=== PATIENT | male | born 1945 | race Caucasian/White ===

== ENCOUNTER 2021-01-13 05:04 | Day surgery (SDC) | payer OTHER, MEDICARE ==
[2021-01-09 17:26] VITALS: BMI 50.7
[2021-01-13 09:32] VITALS: TEMP 96.9
[2021-01-13 10:26] VITALS: BP 128/60; PULSE 77
== END 2021-01-13 10:27 | disposition home or self-care (01) ==
LOC: JASU-ENDO 05:04
PROVIDERS: ATTEND Internal Medicine Gastroenterology
PROC: 0DB98ZX Excision of Duodenum, Via Natural or Artificial Opening Endoscopic, Diagnostic (ICD-10-PCS; 2021-01-13)
PROC: 0DB68ZX Excision of Stomach, Via Natural or Artificial Opening Endoscopic, Diagnostic (ICD-10-PCS; 2021-01-13)
PROC: 0DBN8ZX Excision of Sigmoid Colon, Via Natural or Artificial Opening Endoscopic, Diagnostic (ICD-10-PCS; principal; 2021-01-13 10:00)
DX: Z12.11 Encounter for screening for malignant neoplasm of colon (principal); Z86.010 Personal history of colon polyps; D12.5 Benign neoplasm of sigmoid colon; K64.8 Other hemorrhoids; K29.50 Unspecified chronic gastritis without bleeding

== ENCOUNTER 2022-04-24 12:13 | Inpatient (IN) | payer OTHER, MEDICARE ==
[2022-04-24 12:36] VITALS: BMI 24.0
[2022-04-24 14:14] LABS: BASO % 0.7 % (0-2.0); EOS % 2.4 % (0-4.5); HEMATOCRIT 36.2 % (35.4-49); HEMOGLOBIN 12.5 GM/dL (11.7-16.9); LYMPH % 32.9 % (8-40); MCH 32.4 pg (25.7-33.7); MCHC 34.4 g/dl (32.0-35.9); MEAN CELL VOLUME 94.1 fl (80-96); MEAN PLT VOLUME 7.8 fl (7.5-11.1); MONO % 8.1 % (3.8-10.2); NEUT % 55.9 % (42.8-82.8); PLATELET COUNT 294 10^3/uL (134-434); RBC 3.85 M/mm3 (4.00-5.60); RDW 13.6 % (11.9-15.9); WHITE BLOOD COUNT 6.3 K/mm3 (4.0-10.0)
[2022-04-24 14:38] LABS: CALCIUM 9.2 mg/dL (8.5-10.1)
[2022-04-24 14:39] LABS: ALBUMIN 3.9 g/dl (3.4-5.0); BLOOD UREA NITROGEN 26.4 mg/dL (7-18)
[2022-04-24 14:42] LABS: CREATININE 1.1 mg/dL (0.55-1.3)
[2022-04-24 14:43] LABS: TOT PROT 7.5 g/dl (6.4-8.2)
[2022-04-24 14:44] LABS: BILIRUBIN,TOTAL 0.6 mg/dL (0.2-1)
[2022-04-24 14:47] LABS: N-TERMINAL BNP 265.7 pg/ml (5-450)
[2022-04-24] MEDS ORDERED: HEPARIN NA (PORCINE) 5,000 UNITS/ML 1ML VIAL ONE (21:50)
[2022-04-24] MEDS ORDERED: AMIODARONE HCL 200 MG TABLET ONE (21:50)
[2022-04-24] MEDS: AMIODARONE HCL 200 MG TABLET PO SCH (21:56)
[2022-04-24] MEDS: HEPARIN NA (PORCINE) 5,000 UNITS/ML 1ML VIAL SQ SCH (21:56)
[2022-04-25] MEDS: AMIODARONE HCL 200 MG TABLET PO SCH ×2 (09:59→22:19)
[2022-04-25] MEDS: RAMIPRIL 2.5 MG CAPSULE PO SCH ×2 (09:59→10:23)
[2022-04-25] MEDS: amLODIPine BESYLATE 5 MG TABLET (FP) PO SCH (09:59)
[2022-04-25] MEDS: HYDROCHLOROTHIAZIDE 25 MG TABLET (FP) PO SCH (09:59)
[2022-04-25] MEDS: HEPARIN NA (PORCINE) 5,000 UNITS/ML 1ML VIAL SQ SCH ×2 (09:59→22:20)
[2022-04-25] MEDS: ASPIRIN 81 MG CHEWABLE TABLETS PO SCH ×2 (09:59→10:20)
[2022-04-25] MEDS ORDERED: TAMSULOSIN HCL 0.4 MG CAP PO SCH (10:00)
[2022-04-25] MEDS ORDERED: ROSUVASTATIN CA 40 MG TABLET PO SCH (10:00)
[2022-04-26] MEDS ORDERED: ROSUVASTATIN CA 20 MG TABLET PO SCH (05:38)
[2022-04-26] MEDS: HYDROCHLOROTHIAZIDE 25 MG TABLET (FP) PO SCH (10:16)
[2022-04-26] MEDS: RAMIPRIL 2.5 MG CAPSULE PO SCH ×2 (10:16→10:28)
[2022-04-26] MEDS: ASPIRIN 81 MG CHEWABLE TABLETS PO SCH ×2 (10:16→10:28)
[2022-04-26] MEDS: AMIODARONE HCL 200 MG TABLET PO SCH ×2 (10:16→22:19)
[2022-04-26] MEDS: TAMSULOSIN HCL 0.4 MG CAP PO SCH ×2 (10:16→10:28)
[2022-04-26] MEDS: HEPARIN NA (PORCINE) 5,000 UNITS/ML 1ML VIAL SQ SCH ×2 (10:16→22:21)
[2022-04-26] MEDS: amLODIPine BESYLATE 5 MG TABLET (FP) PO SCH (10:16)
[2022-04-27 09:23] LABS: BASO % 0.9 % (0-2.0); EOS % 1.8 % (0-4.5); HEMATOCRIT 37.3 % (35.4-49); HEMOGLOBIN 12.6 GM/dL (11.7-16.9); LYMPH % 29.8 % (8-40); MCH 31.6 pg (25.7-33.7); MCHC 33.8 g/dl (32.0-35.9); MEAN CELL VOLUME 93.5 fl (80-96); MEAN PLT VOLUME 7.9 fl (7.5-11.1); MONO % 8.2 % (3.8-10.2); NEUT % 59.3 % (42.8-82.8); PLATELET COUNT 312 10^3/uL (134-434); RBC 3.99 M/mm3 (4.00-5.60); RDW 13.9 % (11.9-15.9)
[2022-04-27 09:24] LABS: INR 1.06 (0.83-1.09); PROTHROMBIN TIME (PATIENT) 12.3 SEC (9.7-13.0)
[2022-04-27] MEDS: RAMIPRIL 2.5 MG CAPSULE PO SCH (09:46)
[2022-04-27] MEDS: AMIODARONE HCL 200 MG TABLET PO SCH (09:46)
[2022-04-27] MEDS: ASPIRIN 81 MG CHEWABLE TABLETS PO SCH (09:46)
[2022-04-27] MEDS: TAMSULOSIN HCL 0.4 MG CAP PO SCH (09:47)
[2022-04-27] MEDS: HYDROCHLOROTHIAZIDE 25 MG TABLET (FP) PO SCH (09:47)
[2022-04-27] MEDS: HEPARIN NA (PORCINE) 5,000 UNITS/ML 1ML VIAL SQ SCH ×2 (09:47→13:28)
[2022-04-27] MEDS: amLODIPine BESYLATE 5 MG TABLET (FP) PO SCH (09:47)
[2022-04-27 10:01] LABS: CALCIUM 8.9 mg/dL (8.5-10.1)
[2022-04-27 10:02] LABS: ALBUMIN 3.4 g/dl (3.4-5.0); BLOOD UREA NITROGEN 29.1 mg/dL (7-18); MAGNESIUM 2.3 mg/dL (1.8-2.4)
[2022-04-27 10:05] LABS: CREATININE 1.1 mg/dL (0.55-1.3)
[2022-04-27 10:06] LABS: BILIRUBIN,TOTAL 0.7 mg/dL (0.2-1); TOT PROT 6.9 g/dl (6.4-8.2)
[2022-04-27 11:36] VITALS: RESP 18
[2022-04-27 15:35] VITALS: BP 115/59; PULSE 58; TEMP 98
== END 2022-04-27 17:13 | disposition short-term general hospital (02) | DRG 309 ==
LOC: JER 12:13 → JERBED 13:46 → OBSVTOIN 18:14 → J4S 22:04
PROVIDERS: ADMIT Internal Medicine; ATTEND Internal Medicine
DX: I47.20 Ventricular tachycardia, unspecified (principal); I50.30 Unspecified diastolic (congestive) heart failure; R55 Syncope and collapse; I25.10 Atherosclerotic heart disease of native coronary artery without angina pectoris; I10 Essential (primary) hypertension; I45.10 Unspecified right bundle-branch block
CPT/HCPCS: 0241U-QW; 36415; 71045-TC-FY; 80053; 83735; 83880; 84484; 85025; 85610; 93005; 93010; 99285-25; G0378; J1644